=== PATIENT | female | born 1940 | race Caucasian/White ===

== ENCOUNTER 2018-01-23 23:35 | Emergency (ER) | payer MEDICARE, BC ==
[~2018-01-23] VITALS: Ht 162.6 cm; Wt 65.9 kg
[2018-01-23 23:35] VITALS: BP 67/50
[~2018-01-23 23:35] MED LIST: 0.9 % SODIUM CHLORIDE 10 ML VIAL ONE; AMIO200T40 PO; ASPI-1265 PO; ATOR40TA PO; FENO145T38 PO; GABA-532 PO; LOSA25TA96 PO; METO25TA6 PO; NORCO10T PO; PANT40TA39 PO; RISE150T PO; ZOLP10TA5 PO; calcium chloride 100 MG/1 ML inj IV ONE; dextrose 50%-water 50ml dispensing syringe IV ONE; epiNEPHrine 0.1mg/ml 10ml syringe ONE; etomidate 2mg/ml inj. ONE; rocuronium 10mg/ml inj IV ONE; sodium bicarbonate (8.4%) 1 mEq/ml syringe ONE
[2018-01-24] MEDS ORDERED: etomidate 2mg/ml inj. IV ONE (00:10)
[2018-01-24] MEDS ORDERED: rocuronium 10mg/ml inj IV ONE (00:10)
[2018-01-24] MEDS ORDERED: midazolam 100mg in NS 100ml 100 ML IV ONE (00:10)
[2018-01-24 00:38] LABS: CLARITY,URINE SLIGHTLY CLOUDY (Clear); COLOR,URINE YELLOW (Yellow); GLUCOSE, URINE NEGATIVE (Neg); KETONES,URINE NEGATIVE (Neg); LEUKOCYTE ESTERASE ,URINE SMALL (Neg); NITRITES, URINE NEGATIVE (Neg); OCCULT BLOOD,URINE NEGATIVE (Neg); PROTEIN,URINE 100 mg/dl (Neg)
[2018-01-24 00:39] LABS: UA COLLECTION TYPE FOLEY CATH
[2018-01-24 00:45] LABS: WBC,URINE 50-100 /HPF (0-4)
[2018-01-24 00:46] LABS: BACTERIA,URINE 2+ /HPF (Neg); MUCUS STRANDS FEW /LPF (Neg); RBC,URINE NONE SEEN /HPF (0-2); RENAL CELLS, URINE FEW /HPF; SQUAMOUS EPITHELIAL CELL,UR MANY /LPF (FEW); TRANSITIONAL EPI CELLS,URINE MODERATE /HPF
[2018-01-24 00:51] LABS: ALANINE AMINOTRANSFERASE 25 U/L (12-78); ALBUMIN 1.9 G/DL (3.4-5.0); ALBUMIN/GLOBULIN RATIO 0.7 (1.1-1.5); ALKALINE PHOSPHATASE 46 IU/L (46-116); ANION GAP 22 (8-16); BILIRUBIN,TOTAL 1.3 MG/DL (0.1-1.0); BLOOD UREA NITROGEN 13 MG/DL (7-18); BUN/CREATININE RATIO 14.3 (6.6-38.0); CALCIUM 6.2 MG/DL (8.5-10.1); CHLORIDE 111 MMOL/L (99-107); CREATININE 0.91 MG/DL (0.40-0.90); GLUCOSE 94 MG/DL (70-104); MAGNESIUM 1.4 MG/DL (1.5-2.4); SODIUM 146 MMOL/L (135-145); TOTAL PROTEIN 4.5 G/DL (6.4-8.2); eGFR 60 ML/MIN
[2018-01-24 00:54] LABS: POTASSIUM 3.9 MMOL/L (3.5-5.1); TOTAL CARBON DIOXIDE 12.9 MMOL/L (24-32)
[2018-01-24 01:20] LABS: ASPARTATE AMINO TRANSFERASE 88 U/L (10-37)
== END 2018-01-24 04:29 | disposition expired ==
LOC: ER 23:35
DX: I46.9 Cardiac arrest, cause unspecified (principal); R53.1 Weakness; R06.02 Shortness of breath; R00.1 Bradycardia, unspecified; R10.9 Unspecified abdominal pain; I48.91 Unspecified atrial fibrillation; G89.29 Other chronic pain; Z86.73 Personal history of transient ischemic attack (TIA), and cerebral infarction without residual deficits; Z95.1 Presence of aortocoronary bypass graft; Z90.710 Acquired absence of both cervix and uterus; Z79.82 Long term (current) use of aspirin; Z79.899 Other long term (current) drug therapy
CPT/HCPCS: 31500; 36415; 36556; 71045; 80053; 81001; 83605; 83735; 83880; 84145; 84484; 87040; 87088; 92950; 99291; J0171; 94002; J3490